=== PATIENT | male | born 1935 | race Caucasian/White ===

== ENCOUNTER 2019-12-30 17:30 | Outpatient (NON) | payer OTHER, SELFPAY ==
[2019-12-30 17:48] LABS: Hematocrit 29.9 % (37.0-46.0); Hemoglobin 9.8 g/dL (12.4-15.3); Mean Corpuscular HGB Conc 32.8 g/dL (32.0-36.0); Mean Corpuscular Hemoglobin 30.3 pg (27.0-31.0); Mean Corpuscular Volume 92.6 fL (78.0-102.0); Mean Platelet Volume 10.3 fl (8.7-11.0); Platelet Count Result 283 K/mm3 (150-420); Red Blood Count 3.23 M/mm3 (4.70-6.10); Red Cell Distribution Width 13.5 % (11.6-14.4); White Blood Count 13.1 K/mm3 (4.8-10.8)
[2019-12-30 17:57] LABS: Hemoglobin A1C 5.5 % (<5.7)
[2019-12-30 18:15] LABS: Alanine Aminotransferase 46 U/L (16-63); Albumin Level 2.9 g/dL (3.4-5.0); Alkaline Phosphatase 93 U/L (46-116); Anion Gap 15.6 mmol/L (7-16); Aspartate Amino Transferase 20 U/L (15-37); Bilirubin,Total 0.2 mg/dL (0.00-1.00); Blood Urea Nitrogen 59 mg/dL (7-18); Calcium 7.7 mg/dL (8.5-10.1); Carbon Dioxide 27 mmol/L (21-32); Chloride 102 mmol/L (98-108); Estimated Glomerular Filt Rate 31; Glucose 157 mg/dL (70-99); Magnesium 1.8 mg/dL (1.8-2.4); Osmolality Calculated 309 mOsm/kg (285-295); Potassium 4.6 mmol/L (3.5-5.1); Sodium 140 mmol/L (136-145); Thyroid Stimulating Hormone 1.71 uIU/mL (0.36-3.74); Total Protein 5.9 g/dL (6.4-8.2)
[2019-12-30 18:23] LABS: BNP 153 pg/mL (0-100)
[2019-12-30 18:37] LABS: Atypical Lymphocytes Present; Band Neutrophils Percent 0 % (0-6); Lymphocytes Percent Manual 42 % (18-44); Monocytes Absolute Manual 0.78 K/mm3 (0.1-0.90); Monocytes Percent Manual 6 % (3-9); Neutrophils Absolute Manual 6.81 K/mm3 (1.3-6.7); Neutrophils Percent Manual 52 % (46-73); Total Cells Counted 100
[2019-12-30 18:38] LABS: Platelet Estimate Adequate (Adequate)
== END 2019-12-30 17:31 ==
DX: I26.99 Other pulmonary embolism without acute cor pulmonale (principal); N39.0 Urinary tract infection, site not specified; N13.8 Other obstructive and reflux uropathy; N18.2 Chronic kidney disease, stage 2 (mild); L89.890 Pressure ulcer of other site, unstageable; N40.1 Benign prostatic hyperplasia with lower urinary tract symptoms; I12.9 Hypertensive chronic kidney disease with stage 1 through stage 4 chronic kidney disease, or unspecified chronic kidney disease; R06.02 Shortness of breath; Z79.899 Other long term (current) drug therapy
CPT/HCPCS: 36415; 80053; 83036; 83735; 83880; 84443; 85025